=== PATIENT | female | born 1965 | race Caucasian/White ===

== ENCOUNTER 2020-07-23 10:12 | Emergency (ER) | payer BC ==
[2020-07-23] MEDS ORDERED: Sodium Chloride 0.9% 10 ML Syringe FLUSH PRN (10:16)
[2020-07-23] MEDS ORDERED: levETIRAcetam 1,000 MG in Sodium Chloride 0.9% 100 ML IV ONE (10:16)
--- NOTE | 2020-07-23 10:33 | EDM.PDOC ---
ED HPI GENERAL MEDICAL PROBLEM - General Chief Complaint: Neuro Symptoms/Deficits Stated Complaint: SEIZURE Time Seen by Provider: 07/23/20 10:28 Source of Information: Reports: Patient, EMS History Limitations: Reports: No Limitations - History of Present Illness INITIAL COMMENTS - FREE TEXT/NARRATIVE: 55 yo female is brought in this morning by EMS for self-limited seizure. She was dx with a small brain tumor recently and was started after her 2nd seizure on Keppra 500 mg bid. She has been on this med for about a week. She had not yet had this morning's dose yet when she had this seizure. Is scheduled to be seen at [place] for a consultation regarding this relatively new problem. She is not having any side effects from the Keppra. There was no urinary incontinence or tongue biting with this seizure. Gets aphasic at the beginning of each seizure. This seizure lasted a couple minutes. Onset: Today, Sudden Onset Date: 07/23/20 Duration: Minutes: (~2) Location: Reports: Generalized Quality: Reports: Other (no pain reported) Severity: Moderate Improves with: Reports: Other (time) Worsens with: Reports: Other (uncertain) Context: Reports: Other (See HPI) Associated Symptoms: Reports: Other (tingling in her head much of the time) Treatments ROAD CR[employer] GUARD: Reports: Other (see below) (none) - Related Data Allergies Allergy/AdvReac Type Severity Reaction Status Date / Time No Known Allergies Allergy Verified 07/23/20 10:18 Home Meds: Home Meds levETIRAcetam [Keppra] 250 mg PO Q12H #60 tablet 07/23/20 [Rx] levETIRAcetam [Keppra] 500 mg PO BID 07/23/20 [History] ED ROS GENERAL - Review of Systems Review Of Systems: See Below Constitutional: Reports: No Symptoms HEENT: Reports: No Symptoms Respiratory: Reports: No Symptoms Cardiovascular: Reports: No Symptoms GI/Abdominal: Reports: No Symptoms : Reports: No Symptoms Musculoskeletal: Reports: No Symptoms Skin: Reports: No Symptoms Neurological: Reports: Seizure. Denies: Headache - Physical Exam Exam: See Below Exam Limited By: No Limitations General Appearance: Alert, WD/WN, No Apparent Distress Eye Exam: Bilateral Eye: Normal Inspection, PERRL Ears: Normal External Exam, Normal Canal, Hearing Grossly Normal, Normal TMs Nose: Normal Inspection, No Blood Throat/Mouth: Normal Inspection, Normal Lips, Normal Teeth, Normal Oropharynx, Normal Voice, No Airway Compromise. No: Evidence of Tongue Biting Head Exam: Atraumatic, Normocephalic Neck: Normal Inspection Respiratory/Chest: No Respiratory Distress, Lungs Clear, Normal Breath Sounds, No Accessory Muscle Use Cardiovascular: Regular Rate, Rhythm, No Edema GI/Abdominal: Normal Bowel Sounds, Soft, Non-Tender, No Distention Neuro Exam (Abbreviated): Alert, Oriented, CN II-XII Intact, Normal Cognition, No Motor/Sensory Deficits Back Exam: Normal Inspection Extremities: Normal Inspection, Normal Range of Motion, Non-Tender, No Pedal Edema Psychiatric: Normal Affect, Normal Mood Skin Exam: Warm, Dry, Intact, Normal Color, No Rash Course - Vital Signs Text/Narrative:: discussed situation with an [facility] neurologist @ 1036h Gave Keppra 750 mg po in the ER Last Recorded V/S: Last Vital Signs Temp 36.9 C 07/23/20 10:23 Pulse 85 07/23/20 10:39 Resp 14 07/23/20 10:39 BP 172/82 H 07/23/20 10:39 Pulse Ox 98 07/23/20 10:39 - Orders/Labs/Meds Orders: Active Orders 24 hr Category Date Time Status Sodium Chloride 0.9% [Saline Flush] Med 07/23/20 10:16 Active 10 ml FLUSH ASDIRECTED PRN Saline Lock Insert [OM.PC] Routine Oth 07/23/20 10:16 Ordered Medication Orders Sodium Chloride (Saline Flush) 10 ml FLUSH ASDIRECTED PRN PRN Reason: Keep Vein Open Meds: Medications Generic Name Dose Route Start Last Admin Trade Name Freq PRN Reason Stop Dose Admin Sodium Chloride 10 ml 07/23/20 10:16 Saline Flush FLUSH ASDIRECTED PRN Keep Vein Open Discontinued Medications Generic Name Dose Route Start Last Admin Trade Name Freq PRN Reason Stop Dose Admin Levetiracetam 1,000 mg/ Sodium 110 mls @ 400 mls/hr 07/23/20 10:16 Chloride IV 07/23/20 10:30 ONETIME ONE Levetiracetam 500 mg 07/23/20 10:22 07/23/20 10:45 Keppra PO 07/23/20 10:23 500 mg NOW STA Administration Levetiracetam 250 mg 07/23/20 10:38 07/23/20 10:45 Keppra PO 07/23/20 10:39 250 mg NOW STA Administration Departure - Departure Time of Disposition: 11:02 Disposition: Home, Self-Care 01 Condition: Fair Clinical Impression: Seizure - Discharge Information *PRESCRIPTION DRUG MONITORING PROGRAM REVIEWED*: Not Applicable *COPY OF PRESCRIPTION DRUG MONITORING REPORT IN PATIENT GUY: Not Applicable Prescriptions: levETIRAcetam [Keppra] 250 mg PO Q12H #60 tablet Referrals: PCP,None [Primary Care Provider] - Forms: ED Department Discharge Additional Instructions: Increase your Keppra to 750 mg every 12 hrs. Keep your appt with neurology for follow up. Return as needed. No driving. Sepsis Event Note (ED) - Focused Exam Vital Signs: Vital Signs Temp Pulse Resp BP Pulse Ox 07/23/20 10:39 85 14 172/82 H 98 07/23/20 10:23 36.9 C 99 12 157/74 H 98 07/23/20 10:14 36.9 C 99 12 157/74 H 98 - My Orders Last 24 Hours: My Active Orders 07/23/20 10:16 Sodium Chloride 0.9% [Saline Flush] 10 ml FLUSH ASDIRECTED PRN Saline Lock Insert [OM.PC] Routine - Assessment/Plan Last 24 Hours: My Active Orders 07/23/20 10:16 Sodium Chloride 0.9% [Saline Flush] 10 ml FLUSH ASDIRECTED PRN Saline Lock Insert [OM.PC] Routine
[2020-07-23] MEDS ORDERED: levETIRAcetam 250 MG Tab PO STA (10:38)
[2020-07-23] MEDS: levETIRAcetam 250 MG Tab PO STA (10:45)
== END 2020-07-23 11:36 | disposition home or self-care (01) ==
LOC: JP.ED 10:12
DX: R56.9 Unspecified convulsions (principal); Z79.899 Other long term (current) drug therapy
CPT/HCPCS: 99284; A9270; 99283